=== PATIENT | female | born 2005 | race Caucasian/White ===

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

== ENCOUNTER 2024-11-11 22:11 | Emergency (ER) | payer MEDICAID ==
[2024-11-11] MEDS ORDERED: HYDR-459 MT (23:39)
[2024-11-11 23:55] VITALS: BP 113/78; PULSE 92; RESP 16; O2SAT 99
== END 2024-11-11 23:59 | disposition home or self-care (01) ==
LOC: ER 22:11
DX: F41.9 Anxiety disorder, unspecified (principal); J45.909 Unspecified asthma, uncomplicated
CPT/HCPCS: 81025; 99283